=== PATIENT | male | born 1990 | race Caucasian/White ===

== ENCOUNTER 2024-07-18 10:03 | Emergency (ER) | payer OTHER, SELFPAY ==
[2024-07-18 10:29] VITALS: BP 121/76; PULSE 79; RESP 18; TEMP 36.1; O2SAT 100
--- NOTE | 2024-07-18 11:41 | ED_ITS ---
HPI - General Adult General Chief complaint: Extremity Problem,Nontraumatic Stated complaint: joint swelling, blood parasites Time Seen by Provider: 07/18/24 11:14 History of Present Illness HPI narrative: This is a 33-year-old male presenting ED with concerns about a blood parasite from his cat. Patient said that he has developed body pain all over. He also has swelling of his right elbow. His girlfriend's CT is being treated for a blood parasite. He is concerned he is contracted the disease. This is all in the setting of meth use. Patient denies fevers chills chest pain difficulty breathing abdominal pain. He says he has been scratch but a CT over the last several weeks. Related Data Home Medications Medication Instructions Recorded Confirmed buprenorphine 8 mg-naloxone 2 mg film 07/18/24 sublingual film Allergies Allergy/AdvReac Type Severity Reaction Status Date / Time No Known Allergies Allergy Verified 07/18/24 11:50 Exam Narrative: APPEARANCE: No apparent distress. Head: atraumatic. EYES: EOMI, NOSE: Atraumatic NECK: Trachea midline RESPIRATORY: No increased rate of breathing CARDIOVASCULAR: RRR, ABDOMINAL: Non-distended MUSCULOSKELETAl: No obvious deformities , fluctuant mass over the right elbow consistent with bursitis NEURO: Alert. Moving 4/4 extremities SKIN:: Warm, dry. Normal color PSYCHIATRIC: Normal affect Course Vital Signs Vital signs: Vital Signs Temperature 97.0 F L 07/18/24 10:29 Pulse Rate 79 07/18/24 10:29 Respiratory Rate 18 07/18/24 10:29 Blood Pressure 121/76 07/18/24 10:29 Pulse Oximetry 100 07/18/24 10:29 Oxygen Delivery Room Air 07/18/24 10:29 Temperature 97.0 F L 07/18/24 10:29 Pulse Rate 79 07/18/24 10:29 Respiratory Rate 18 07/18/24 10:29 Blood Pressure 121/76 07/18/24 10:29 Pulse Oximetry 100 07/18/24 10:29 Oxygen Delivery Room Air 07/18/24 10:29 Medical Decision Making [facility] Narrative Medical decision making narrative: -Course: 33-year-old male worried about blood parasites from his cat and amp hetamine abuse. No lymphadenopathy/fevers. he does have bursitis of the right elbow but without any inflammation or signs of infection. Patient be treated with Z-Idris to cover cat scratch fever. Discharged. Instructed to stop using meth. Given return precautions -DDX includes but is not limited to: cat scratch fever, amphetamine abuse, bursitis -Co-morbidities complicating care: history of opiate use, amphetamine abuse -Social determinants of health: unemployed, Suboxone, amphetamines -Shared decision making / Disposition: discharged -RX azithromycin Vital Signs Vital Signs: Vital Signs Temperature 97.0 F L 07/18/24 10:29 Pulse Rate 79 07/18/24 10:29 Respiratory Rate 18 07/18/24 10:29 Blood Pressure 121/76 07/18/24 10:29 Pulse Oximetry 100 07/18/24 10:29 Oxygen Delivery Room Air 07/18/24 10:29 Temperature 97.0 F L 07/18/24 10:29 Pulse Rate 79 07/18/24 10:29 Respiratory Rate 18 07/18/24 10:29 Blood Pressure 121/76 07/18/24 10:29 Pulse Oximetry 100 07/18/24 10:29 Oxygen Delivery Room Air 07/18/24 10:29 Discharge Plan Discharge Clinical Impression: Amphetamine abuse, Cat scratch fever Patient Disposition: Home, Self-Care Condition: Stable Instructions: Antibiotic Form, Amphetamine (By mouth), Cat Scratch Disease (ED) Additional Instructions: You were seen in the emergency department for possible cat scratch disease. Complete a course of azithromycin. Please refrain from using methamphetamine. Return if you need re-evaluation. Prescriptions: New azithromycin 250 mg tablet See Rx Instructions .ROUTE .COMPLEX Qty: 6 0RF Rx Instructions: For 250 mg dose pack: take 500 mg today (day 1), then 250 mg for 4 days (days 2-5) No Action buprenorphine-naloxone 8-2 mg film Follow-up/Referrals: Jarvis Richards MD [Primary Care Provider] -
--- NOTE | 2024-07-18 13:45 | PC.NURSE ---
patient left without discharge paperwork and prescription. Called the phone number listed in the patients chart to let the patient know and a voicemail was left for the patient to return the phone call to the ER
== END 2024-07-18 12:05 | disposition home or self-care (01) ==
PROVIDERS: Emergency Provider Emergency Medicine; PCP Internal Medicine
DX: A28.1 Cat-scratch disease (principal); F15.10 Other stimulant abuse, uncomplicated; M70.31 Other bursitis of elbow, right elbow
CPT/HCPCS: 99283